=== PATIENT | female | born 1980 | race Caucasian/White ===

== ENCOUNTER 2017-06-01 16:32 | Outpatient (CLI) | payer BC | END 2017-06-01 16:33 | disposition home or self-care (01) | LOC: LAB 16:32 | PROVIDERS: ATTEND Family Medicine | DX: L65.9 Nonscarring hair loss, unspecified (principal) | CPT/HCPCS: 84439; 84443; 84481 ==

== ENCOUNTER 2023-06-21 16:28 | Outpatient (CLI) | payer BC | END 2023-06-21 16:29 | disposition home or self-care (01) | LOC: SCSRAD 16:28 | PROVIDERS: ATTEND Family Medicine | DX: M79.672 Pain in left foot (principal) ==